=== PATIENT | female | born 1980 | race Asian ===

== ENCOUNTER 2016-11-11 12:14 | Emergency (ER) | payer OTHER ==
[~2016-11-11] VITALS: Ht 170.2 cm; Wt 113.4 kg
[~2016-11-11 12:14] MED LIST: ALPR0.2566 PO; CELEXA10 MG PO; CIPR500T PO; CIPRO500 MG PO; CYCL10TA35 PO; FLUC150T PO; HYDR25TA60 PO; TRAM50TA PO; TRIM800T12 PO
[2016-11-11 12:25] VITALS: BP 134/77; TEMP 98
== END 2016-11-11 14:41 | disposition home or self-care (01) ==
LOC: ED 12:14
DX: N39.0 Urinary tract infection, site not specified (principal); M54.9 Dorsalgia, unspecified; J02.9 Acute pharyngitis, unspecified
CPT/HCPCS: 81000; 99282

== ENCOUNTER 2017-12-01 09:57 | Emergency (ER) | payer OTHER ==
[~2017-12-01] VITALS: Ht 172.7 cm; Wt 113.4 kg
[2017-12-01 11:45] LABS: POTASSIUM 3.5 mmol/L (3.6-5.2)
[2017-12-01 12:16] VITALS: BP 154/96; TEMP 97.5
== END 2017-12-01 12:19 | disposition home or self-care (01) ==
LOC: ED 09:57
DX: M17.12 Unilateral primary osteoarthritis, left knee (principal); N93.8 Other specified abnormal uterine and vaginal bleeding
CPT/HCPCS: 36415; 80053; 84550; 99283